=== PATIENT | female | born 1950 | race Caucasian/White ===

== ENCOUNTER 2020-11-11 12:48 | Emergency (ER) | payer OTHER ==
[2020-12-08] MEDS ORDERED: XANAX1 MG PO (14:34)
[2020-12-08] MEDS ORDERED: OXYCODONE HCL30 MG PO (14:35)
[2020-12-08] MEDS ORDERED: BACLOFEN 20MG T20 MG PO (14:35)
[2020-12-08] MEDS ORDERED: CELEBREX **OUT100 MG PO (14:36)
[2020-12-08] MEDS ORDERED: CELEXA20 MG PO (14:36)
[2020-12-08] MEDS ORDERED: PROTONIX 40MG T40 MG PO (14:36)
[2020-12-08] MEDS ORDERED: ASPIRIN81 MG PO (14:37)
[2020-12-08] MEDS ORDERED: OS-CAL500 MG PO (14:37)
[2020-12-08] MEDS ORDERED: SYNTHROID137 MCG PO (14:37)
[2020-12-08] MEDS ORDERED: MULTIVITAMIN PO (14:38)
[2020-12-08] MEDS ORDERED: ALLEGRA ALLERG180 MG PO (14:38)
[2020-12-08] MEDS ORDERED: CHLORTABS4 MG PO (14:38)
[2020-12-08] MEDS ORDERED: PROVENTIL HFA6.7 GM INH (14:39)
[2020-12-08] MEDS ORDERED: MIRAPEX0.25 MG PO (14:39)
[2020-12-08] MEDS ORDERED: GABAPENTIN600 MG PO (14:39)
[2020-12-08] MEDS ORDERED: ZOFRAN4 M1 PO (14:40)
[2020-12-08] MEDS ORDERED: PHENERGAN25 M1 PO (14:40)
[2020-12-08] MEDS ORDERED: SEROQUEL50 MG PO (14:41)
[2020-12-08] MEDS ORDERED: [UNRECOGNIZED DRUG - OTHER] TOP (14:41)
[2020-12-08] MEDS ORDERED: SENNA8.6 MG PO (14:41)
[2020-12-08] MEDS ORDERED: LASIX20 MG PO (14:42)
[2020-12-08] MEDS ORDERED: AMOX TR-K CLV1 EAC4 PO (14:43)
== END 2020-11-11 18:05 | disposition home or self-care (01) ==
LOC: FER 12:48
DX: S51.812A Laceration without foreign body of left forearm, initial encounter (principal); Z98.890 Other specified postprocedural states; Z88.5 Allergy status to narcotic agent; Z88.1 Allergy status to other antibiotic agents; Z23 Encounter for immunization; W26.0XXA Contact with knife, initial encounter; Y93.89 Activity, other specified; Y92.009 Unspecified place in unspecified non-institutional (private) residence as the place of occurrence of the external cause
CPT/HCPCS: 90471; 90715